=== PATIENT | male | born 1985 | race Caucasian/White ===

== ENCOUNTER → 2021-02-27 11:10 | Outpatient (CLI) | payer BC, SELFPAY ==
--- NOTE | ~2021-02-27 | XR_ITS ---
CORRECTED REPORT REPORT AND CHARGES MOVED FROM [id number] TO [id number]. 03/09/2021 sef XR chest 2V DATE: 02/27/2021 15:26 INDICATION: Cough for 2 weeks. Covid-positive diagnosis 1.5 weeks ago. TECHNIQUE: PA and lateral views COMPARISON: None FINDINGS: Normal heart size. No hilar or mediastinal enlargement. No pulmonary infiltrate or consolidation, pleural effusion or pulmonary vascular congestion or pneumothorax is detected. IMPRESSION: No active cardiopulmonary disease Reviewed, dictated and finalized at location A. MTDD
== END ==
PROVIDERS: PCP Internal Medicine; Visit Provider Physician Assistant
DX: R05 Cough (principal)
CPT/HCPCS: 71046

== ENCOUNTER 2022-10-09 15:36 | Outpatient (CLI) | payer BC, SELFPAY ==
--- NOTE | ~2022-10-09 | XR_ITS ---
XR foot LT min 3V 10/09/2022 15:56 INDICATION: Left fifth metatarsal pain after stepping in a crack. PROCEDURE: 4 views of the left foot COMPARISON: No prior studies for comparison. FINDINGS: Fracture, dislocation or subluxation is not identified. Lisfranc joint intact. The soft tis sues appear within normal limits. No foreign bodies are identified. IMPRESSION: 1: NO ACUTE BONE OR JOINT ABNORMALITY IDENTIFIED. Reviewed, dictated and finalized at location A. DITCHER
== END 2022-10-09 15:37 | disposition home or self-care (01) ==
PROVIDERS: PCP Physician Assistant; Visit Provider Physician Assistant
DX: M79.672 Pain in left foot (principal)
CPT/HCPCS: 73630

== ENCOUNTER 2025-08-01 13:56 | Outpatient (CLI) | payer BC, SELFPAY ==
--- NOTE | ~2025-08-01 | XR_ITS ---
EXAMINATION: [id number] DATE: 08/01/2025 14:14 INDICATION: Pleurodynia TECHNIQUE: A frontal inspiratory view of the chest and 3 views of the ribs were obtained. COMPARISON: Chest radiograph dated 02/25/2021 FINDINGS: No rib fractures identified. No pneumothorax. No focal infiltrates, pleural effusion or pulmonary edema. Cardiomediastinal silhouette is normal. IMPRESSION: 1. No rib fracture or acute cardiopulmonary disease. If symptoms persist or worsen, consider a chest CT for further assessment Reviewed, dictated and finalized at location Q.
--- OUTSIDE RECORDS SUMMARY | 2025-08-01 16:40 | XMS_ITS | Clinical Summary ---
Author Organization [facility] Address [address] [place] [address] Care Team Providers Care Diesel Engine Assembler Name Role Phone Unavailable Primary Care Provider Unavailabl e Source Comments [facility],non-owned Affiliates and Associated Physician Practices is amultiple site organization consisting of ambulatory clinics and hospital sitesin [place], [place], [place] and [place]. This disclosure is being madepursuant to the Care Everywhere program and may not contain all information available regarding this patient. Last updated 18.[facility] Social History Tobacco Use Types Packs/Day Years Used Date Smoking Tobacco: Never Alcohol Use Standard Drinks/Week Comments Yes 0 (1 standard drink = 0.6 oz pur e alcohol) Sex and Gender Information Value Date Recorded Sex Assigned at Not on file Legal Sex Male 6:24 PM ROLLER Gender Identity Not on file Sexual Orientation Not on file Last Filed Vital Signs Vital Sign Reading Time Taken Comments Blood Pressure 143/109 10/21/2014 4:07 AM ROLLER Pulse 72 10/21/2014 4:07 AM ROLLER Temperature 37.2 C (98.9 F) 10/21/2014 4:07 AM ROLLER Respiratory Rate 14 10/21/2014 4:07 AM ROLLER Oxygen Saturation 99% 10/21/2014 4:07 AM ROLLER Inhaled Oxygen Concentration - - Weight 81.6 kg (180 lb) 10/21/2014 4:07 AM ROLLER Height 175.3 cm (5' 9) 10/21/2014 4:07 AM ROLLER Body Mass Index 26.58 10/21/2014 4:07 AM ROLLER Plan of Treatment Health Maintenance Due Date Last Done Comments HIV SCREENING 2001 HEPATITIS C SCREENING 12/01/2004 DTAP/TDAP/TD VACCINES (1 - Tdap) 2005 HEPATITIS B VACCINE (1 of 3 - 19+ 3-dose series) 2005 HPV VACCINE (1 - 3-dose SCDM series) 2013 DEPRESSION SCREENING 11/17/2024 COVID-19 VACCINE (2023-2 5 season) 2025 INFLUENZA VACCINE (#1) 2025 ZOSTER VACCINE (1 of 2) 2036 HIB VACCINE Aged Out No longer eligi ble based on patient's age to complete this topic MENINGOCOCCAL (Group B) VACC INE SHARED DECISION-MAKING Aged Out No longer eligibl e based on patient's age to complete this topic MENINGOCOCCAL GROUPS A/C/Y/W VACCINE Aged Out No longer eligible b ased on patient's age to complete this topic PNEUMOCOCCAL VACCINE Aged Out No long er eligible based on patient's age to complete this topic
--- OUTSIDE RECORDS SUMMARY | 2025-08-01 16:40 | XMS_ITS | Clinical Summary ---
Author Organization [facility] Address [address] [place] [address] Care Team Providers Care Validation Software Facilitator Name Role Phone Unavailable Primary Care Provider Unavailabl e Social History Tobacco Use Types Packs/Day Years Used Date Smoking Tobacco: Never Assessed Sex and Gender Information Value Date Recorded Sex Assigned at Not on file Legal Sex Male 3:21 PM CDT Gender Identity Not on file Sexual Orientation Not on file Plan of Treatment Health Maintenance Due Date Last Done Comments Hepatitis C Virus (HCV) Screening 1986 TdaP Immunization 1986 Hepatitis B Immunization (1 of 3 - 19+ 3-dose series) 2005 Human Papillomavirus (HPV) Immunization (1 - 3-dose SCDM series) 2013 SARS-COV-2 Immunization ( - season) 2024 Influenza Immunization (#1) 2025 Respiratory Syncytial Virus (RSV) Immunization (Adult) (1 - 1-dose 75+ series) 2061 Meningococcal Immunization (ACWY) Aged Out No longer eligible based on patient's age to complete this topic Pneumococcal Immunization Combined Aged Out No longer eligible based on patient's age to complete this topic Rotavirus Immunization Aged Out No lo nger eligible based on patient's age to complete this topic
== END 2025-08-01 13:57 | disposition home or self-care (01) ==
LOC: ANHIMG 13:57
PROVIDERS: PCP Nurse Practitioner; Visit Provider Internal Medicine
DX: R07.81 Pleurodynia (principal)
CPT/HCPCS: 71101